=== PATIENT | female | born 1995 | race African-American/Black ===

== ENCOUNTER → 2023-12-20 | Outpatient (CLI) | payer MEDICAID ==
[2023-12-20 10:18] LABS: Basophils # (auto) 0.1 10 ^3/uL (0-0.2); Basophils % (auto) 0.5 % (0.0-2.0); Eosinophils # (auto) 0.1 10 ^3/uL (0-0.8); Eosinophils % (auto) 0.6 % (0.0-7.0); Hematocrit 36.9 % (36.0-46.0); Hemoglobin 12.1 g/dL (12.2-16.2); Lymphocytes # (auto) 2.4 10 ^3/uL (0.4-5.4); Lymphocytes % (auto) 24.2 % (10.0-50.0); Mean Corpuscular Hemoglobin 26.4 pg (28.0-32.0); Mean Corpuscular Hgb Conc. 32.8 g/dL (32.0-36.0); Mean Corpuscular Volume 80.3 fL (80.0-100.0); Monocytes # (auto) 0.6 10 ^3/uL (0-1.3); Monocytes % (auto) 5.5 % (0.0-12.0); Neutrophils % (auto) 69.2 % (37.0-80.0); Red Cell Distribution Width 15.2 % (11.8-14.3); White Blood Cell 10.1 10^3/uL (4.4-10.8)
[2023-12-21 07:06] LABS: RPR Non Reactive (Non Reactive)
[2023-12-21 23:07] LABS: Chlamydia Trachomatis, NAA Negative (Negative); Neisseria gonorrhoeae, NAA Negative (Negative)
== END | disposition home or self-care (01) ==
LOC: LAB 09:43
PROVIDERS: ATTEND Obstetrics & Gynecology
DX: Z34.00 Encounter for supervision of normal first pregnancy, unspecified trimester (principal); Z72.51 High risk heterosexual behavior; Z3A.00 Weeks of gestation of pregnancy not specified
CPT/HCPCS: 36415; 85025; 86592

== ENCOUNTER 2024-01-13 12:19 | Observation (INO) | payer MEDICAID ==
[~2024-01-13] VITALS: Ht 162.6 cm; Wt 88.5 kg
[2024-01-13] MEDS ORDERED: PREN-96 PO (13:37)
[2024-01-13 15:58] LABS: Basophils # (auto) 0 10 ^3/uL (0-0.2); Basophils % (auto) 0.2 % (0.0-2.0); Eosinophils # (auto) 0 10 ^3/uL (0-0.8); Hemoglobin 11.3 g/dL (12.2-16.2); Lymphocytes # (auto) 1.9 10 ^3/uL (0.4-5.4); Monocytes # (auto) 0.3 10 ^3/uL (0-1.3); Monocytes % (auto) 4.5 % (0.0-12.0); Neutrophils # (auto) 5.3 10 ^3/uL (1.6-8.6)
[2024-01-13 16:00] LABS: Eosinophils % (auto) 0.4 % (0.0-7.0); Hematocrit 34.7 % (36.0-46.0); Lymphocytes % (auto) 24.6 % (10.0-50.0); Mean Corpuscular Hemoglobin 25.7 pg (28.0-32.0); Mean Corpuscular Hgb Conc. 32.7 g/dL (32.0-36.0); Mean Corpuscular Volume 78.8 fL (80.0-100.0); Neutrophils % (auto) 70.3 % (37.0-80.0); Nucleated Red Blood Cells % 0.1 %; Red Blood Cells 4.41 10^6/uL (4.0-5.20); Red Cell Distribution Width 15.5 % (11.8-14.3); White Blood Cell 7.6 10^3/uL (4.4-10.8)
[2024-01-13 16:10] LABS: Alanine Aminotransferase 24 U/L (7-40); Albumin 3.9 g/dL (3.2-4.8); Alkaline Phosphatase 140 U/L (46-116); Anion Gap 6 (5-15); Aspartate Aminotransferase 32 U/L (13-40); BUN/Creatinine Ratio 17.2 (10.0-20.0); Blood Urea Nitrogen 10 mg/dL (9-23); Calcium 9.3 mg/dL (8.5-10.1); Carbon Dioxide 22 mmol/L (20-30); Chloride 107 mmol/L (98-107); Glucose 99 mg/dL (74-106); Potassium 4.1 mmol/L (3.5-5.1); Sodium 135 mmol/L (136-145)
[2024-01-13 16:11] LABS: Bilirubin, Total 0.2 mg/dL (0.2-1.0)
[2024-01-13 16:18] LABS: INR 0.92 (0.9-1.15); Partial Thromboplastin Time 25.6 SEC (24.5-34.5); Prothrombin Time 9.8 sec (9.3-11.8)
[2024-01-13] MEDS: LACTATED RINGER'S 1,000 ML IV SCH (16:53)
== END 2024-01-13 18:41 | disposition home or self-care (01) ==
LOC: UNDOADMOB 12:19 → INTOOBSV 12:19 → LDRP 12:19 → OBSVTOIN 12:19 → LDRP 17:55
PROVIDERS: ADMIT Obstetrics & Gynecology; ATTEND Obstetrics & Gynecology
DX: O40.3XX0 Polyhydramnios, third trimester, not applicable or unspecified (principal); Z3A.38 38 weeks gestation of pregnancy; Z86.2 Personal history of diseases of the blood and blood-forming organs and certain disorders involving the immune mechanism
CPT/HCPCS: 36415; 59025; 76818; 80053; 81002; 85025; 85610; 85730; 86592; 86803; 86850; 86900; 86901; 94760; 96360; 96361; G0378

== ENCOUNTER 2024-01-16 08:33 | Inpatient (IN) | payer MEDICAID ==
[~2024-01-16] VITALS: Ht 162.6 cm; Wt 87.5 kg
[~2024-01-16 08:33] MED LIST: PREN-96 PO
[2024-01-16] MEDS ORDERED: LIDOCAINE 2%HCL (LOCAL ANESTH.) INJ 20ML MDV IJ PRN (18:30)
[2024-01-16] MEDS ORDERED: BUTORPHANOL TARTRATE 2 MG/1 ML VIAL IV PRN ×2 (18:30)
[2024-01-16] MEDS: LACTATED RINGER'S 1,000 ML IV SCH (18:54)
[2024-01-16 20:12] LABS: Basophils # (auto) 0 10 ^3/uL (0-0.2); Basophils % (auto) 0.4 % (0.0-2.0); Eosinophils # (auto) 0 10 ^3/uL (0-0.8); Neutrophils # (auto) 5.4 10 ^3/uL (1.6-8.6); White Blood Cell 8.1 10^3/uL (4.4-10.8)
[2024-01-16 20:13] LABS: Eosinophils % (auto) 0.5 % (0.0-7.0); Hematocrit 32.9 % (36.0-46.0); Hemoglobin 10.9 g/dL (12.2-16.2); Lymphocytes # (auto) 2.2 10 ^3/uL (0.4-5.4); Lymphocytes % (auto) 27.6 % (10.0-50.0); Mean Corpuscular Hemoglobin 26.2 pg (28.0-32.0); Mean Corpuscular Hgb Conc. 33.1 g/dL (32.0-36.0); Mean Corpuscular Volume 79.2 fL (80.0-100.0); Monocytes # (auto) 0.4 10 ^3/uL (0-1.3); Monocytes % (auto) 4.7 % (0.0-12.0); Neutrophils % (auto) 66.8 % (37.0-80.0); Red Blood Cells 4.16 10^6/uL (4.0-5.20); Red Cell Distribution Width 15.5 % (11.8-14.3)
[2024-01-16 20:18] LABS: Urine Bacteria FEW /hpf (None Seen); Urine Blood 1+ /uL (Negative); Urine Clarity Turbid (Clear); Urine Color Light-Orange (Yellow); Urine Mucus FEW (None Seen); Urine Protein, UAD 1+ (Negative); Urine Urobilinogen Normal (Negative); Urine WBC 44 /hpf (0 - 5)
[2024-01-16] MEDS: miSOPROStol 50 MCG per PRE-CUT 1/2 TAB PO PRN (20:26)
[2024-01-16 20:27] LABS: INR 0.92 (0.9-1.15); Partial Thromboplastin Time 24.2 SEC (24.5-34.5); Prothrombin Time 9.8 sec (9.3-11.8)
[2024-01-16 20:28] LABS: Alanine Aminotransferase 20 U/L (7-40); Albumin 3.8 g/dL (3.2-4.8); Alkaline Phosphatase 134 U/L (46-116); Anion Gap 7 (5-15); Aspartate Aminotransferase 21 U/L (13-40); BUN/Creatinine Ratio 12.3 (10.0-20.0); Bilirubin, Total 0.2 mg/dL (0.2-1.0); Blood Urea Nitrogen 7 mg/dL (9-23); Carbon Dioxide 21 mmol/L (20-30); Chloride 107 mmol/L (98-107); Glucose 98 mg/dL (74-106); Sodium 135 mmol/L (136-145); Total Protein 6.8 g/dL (5.7-8.2)
[2024-01-16 20:29] LABS: Amphetamine Screen, Urine Neg (NEGATIVE); Barbiturate Scree,Urine Neg (NEGATIVE); Benzodiazephine Screen, Urine Neg (NEGATIVE); Cannabinoid Screen, Urine Neg (NEGATIVE); Cocaine Screen, Urine Neg (NEGATIVE); Opiate Scree,Urine Neg (NEGATIVE); Phencyclidine Screen, Urine Neg (NEGATIVE)
[2024-01-17 10:45] VITALS: TEMP 98.3
[2024-01-17] MEDS: LACTATED RINGER'S 1,000 ML IV ONE (14:54)
[2024-01-17] MEDS: fentaNYL CITRATE 100 MCG/2 ML VL ONE (15:01)
[2024-01-17] MEDS: Lidocaine W-Epinephrine 1.5%-1:200,000 INJ 10ml Vial EPI ONE (15:01)
[2024-01-17] MEDS: ROPIVACAINE HCL 200 ML ONE (15:08)
[2024-01-17] MEDS: FAMOTIDINE (10MG/ML) 2ML VL IV PRN (15:59)
[2024-01-17] MEDS ORDERED: LACT. RINGERS/OXYTOCIN 20UNITS 1,000 ML IV SCH (16:45)
[2024-01-17] MEDS ORDERED: TERBUTALINE SULFATE 1 MG/ML 1ML VIAL SC PRN (16:45)
[2024-01-17] MEDS: diphenhdrAMINE HCL 50 MG/1 ML VL IV PRN (17:27)
[2024-01-17] MEDS ORDERED: D5W/LACTATED RINGERS 1,000 ML IV SCH (18:00)
[2024-01-17] MEDS: LIDOCAINE HCL 2 %PF INJ 10ML AMP IJ ONE (19:42)
[2024-01-17] MEDS ORDERED: fentaNYL CITRATE 100 MCG/2 ML VL ONE (19:52)
[2024-01-17] MEDS ORDERED: MIDAZOLAM HCL 2MG/2ML 2ml VIAL (1mg/ml) ONE (19:52)
[2024-01-17] MEDS ORDERED: MORPHINE SULF PF 5 MG/10 ML VIAL ONE (19:52)
[2024-01-17] MEDS ORDERED: IBUP-1456 PO (20:11)
[2024-01-17] MEDS ORDERED: HYDR-4902 PO (20:11)
[2024-01-17] MEDS ORDERED: DOCU-94 PO (20:11)
[2024-01-17] MEDS ORDERED: ONDANSETRON HCL 4 MG/2 ML VIAL IV PRN ×2 (20:15→21:00)
[2024-01-17] MEDS ORDERED: ceFAZolin 1GM/50ML 50 ML IV SCH (20:15)
[2024-01-17] MEDS: METHYLERGONOVINE MALEATE 0.2 MG/ML AMP IM ONE (20:15)
[2024-01-17] MEDS: CARBOPROST TROMETHAMINE 250 MCG/1ML VIAL IM ONE ×2 (20:25→20:40)
[2024-01-17] MEDS ORDERED: HYDROmorphone HCL 2 MG/ML VL/or syr IV PRN ×2 (21:00→22:45)
[2024-01-17] MEDS ORDERED: ePHEDrine SULFATE 50 MG/ML AMP IV PRN (21:00)
[2024-01-17] MEDS ORDERED: MIDAZOLAM HCL 2MG/2ML 2ml VIAL (1mg/ml) IV PRN (21:00)
[2024-01-17] MEDS ORDERED: NALOXONE HCL 0.4 MG/ML VIAL IV PRN (21:00)
[2024-01-17] MEDS ORDERED: LABETALOL HCL 5 MG/ML 4ML SYRINGE IV PRN (21:00)
[2024-01-17] MEDS ORDERED: DexAMETHasone SOD PHOS 10MG/1ML VIAL INJ IV PRN (21:00)
[2024-01-17] MEDS ORDERED: oxyTOCIN 10 UNIT/ML 10ML VIAL ONE (21:02)
[2024-01-17 21:06] VITALS: PULSE 101; RESP 15; O2SAT 96
[2024-01-17] MEDS: DIPHENOXYLATE W/ATROPINE 2.5 MG TAB PO ONE (21:45)
[2024-01-17] MEDS: DIPHENOXYLATE W/ATROPINE 2.5 MG TAB ONE ×2 (21:50→22:07)
[2024-01-17 22:25] VITALS: BP_SYST 119; BP_DIAS 65; BP_DIAS 66; PULSE 91; RESP 18; TEMP 98.2; O2SAT 93
[2024-01-17] MEDS ORDERED: ACETAMINOPHEN IV 1000 MG/100ML (10MG/ML) IV PRN (22:45)
[2024-01-17] MEDS ORDERED: MORPHINE SULFATE INJ 2 MG/ml SYRG IV PRN (22:45)
[2024-01-17] MEDS ORDERED: KETOROLAC TROMETH 30 MG/ML 1ML VIAL IV PRN (22:45)
[2024-01-17 23:25] VITALS: BP 124/66; PULSE 80; RESP 18; O2SAT 94
[2024-01-17 23:37] LABS: Basophils # (auto) 0.1 10 ^3/uL (0-0.2); Basophils % (auto) 0.6 % (0.0-2.0); Eosinophils # (auto) 0 10 ^3/uL (0-0.8); Eosinophils % (auto) 0.1 % (0.0-7.0); Hematocrit 33.5 % (36.0-46.0); Monocytes # (auto) 0.8 10 ^3/uL (0-1.3)
[2024-01-17 23:39] LABS: Hemoglobin 11.1 g/dL (12.2-16.2); Lymphocytes # (auto) 1.9 10 ^3/uL (0.4-5.4); Lymphocytes % (auto) 13.9 % (10.0-50.0); Mean Corpuscular Hemoglobin 26.3 pg (28.0-32.0); Mean Corpuscular Hgb Conc. 33.2 g/dL (32.0-36.0); Mean Corpuscular Volume 79.3 fL (80.0-100.0); Monocytes % (auto) 5.7 % (0.0-12.0); Neutrophils # (auto) 11.2 10 ^3/uL (1.6-8.6); Neutrophils % (auto) 79.7 % (37.0-80.0); Red Blood Cells 4.22 10^6/uL (4.0-5.20); Red Cell Distribution Width 15.4 % (11.8-14.3)
[2024-01-18] VITALS (29 sets, daily range): BP systolic 106–138; BP diastolic 43–90; PULSE 80–100; RESP 16–22; TEMP 98.1–99.1; O2SAT 93–98
[2024-01-18] MEDS: ceFAZolin 1GM/50ML 50 ML IV SCH (03:05)
[2024-01-18] MEDS: ceFAZolin 1GM/50ML 100 ML IV ONE (03:06)
[2024-01-18] MEDS: WITCH HAZEL-GLYCERIN PAD TOP PRN (03:08)
[2024-01-18] MEDS: DERMOPLAST 60ML BOTTLE TOP PRN (03:08)
[2024-01-18] MEDS: PHISODERM TOP SOLN 240ML BTL TOP PRN (03:08)
[2024-01-18] MEDS: ACETAMINOPHEN IV 1000 MG/100ML (10MG/ML) IV PRN (03:44)
[2024-01-18] MEDS: LACT. RINGERS/OXYTOCIN 20UNITS 500 ML IV ONE ×2 (04:51)
[2024-01-18 05:41] LABS: Basophils # (auto) 0 10 ^3/uL (0-0.2); Eosinophils # (auto) 0 10 ^3/uL (0-0.8); Eosinophils % (auto) 0.1 % (0.0-7.0); Lymphocytes # (auto) 1.9 10 ^3/uL (0.4-5.4); Monocytes # (auto) 0.7 10 ^3/uL (0-1.3)
[2024-01-18 05:44] LABS: Basophils % (auto) 0.2 % (0.0-2.0); Hematocrit 31.6 % (36.0-46.0); Hemoglobin 10.4 g/dL (12.2-16.2); Lymphocytes % (auto) 17.9 % (10.0-50.0); Mean Corpuscular Hemoglobin 26.4 pg (28.0-32.0); Mean Corpuscular Volume 80.1 fL (80.0-100.0); Monocytes % (auto) 6.3 % (0.0-12.0); Neutrophils # (auto) 8.2 10 ^3/uL (1.6-8.6); Neutrophils % (auto) 75.5 % (37.0-80.0); Red Blood Cells 3.94 10^6/uL (4.0-5.20); Red Cell Distribution Width 15.5 % (11.8-14.3); White Blood Cell 10.9 10^3/uL (4.4-10.8)
[2024-01-18 07:07] LABS: RPR Non Reactive (Non Reactive)
[2024-01-18] MEDS: LIDOCAINE HCL 2 %PF INJ 10ML AMP IJ ONE (17:22)
[2024-01-18] MEDS: ePHEDrine SULFATE 50 MG/ML AMP IV ONE ×2 (17:22)
[2024-01-18] MEDS: LACT. RINGERS/OXYTOCIN 20UNITS 1,000 ML IV ONE (17:23)
[2024-01-18] MEDS: NALOXONE HCL 0.4 MG/ML VIAL IV ONE (17:23)
[2024-01-18] MEDS: ONDANSETRON HCL 4 MG/2 ML VIAL IV ONE (17:24)
[2024-01-18] MEDS: GUM (CHEWING) 1 GUM CHEW CHEW ONE (17:27)
[2024-01-18] MEDS ORDERED: HYDROcodone-ACET 5/325MG TAB PO PRN ×2 (20:15)
[2024-01-18] MEDS: SIMETHICONE 80 MG CHEWABLE TABLET PO SCH (22:14)
[2024-01-19] MEDS: ceFAZolin 1GM/50ML 50 ML IV SCH
[2024-01-19] MEDS: IBUPROFEN 800 MG TAB PO PRN (01:52)
[2024-01-19 03:00] VITALS: BP 133/82; PULSE 80; RESP 16; TEMP 97.7; O2SAT 97
[2024-01-19 07:00] VITALS: BP 133/81; PULSE 96; RESP 18; TEMP 97.6; O2SAT 95
[2024-01-19 11:00] VITALS: BP 134/84; PULSE 97; RESP 20; TEMP 98.3; O2SAT 97
[2024-01-19] MEDS: DOCUSATE CALCIUM 240 MG CAP PO SCH (12:06)
[2024-01-19 15:00] VITALS: BP 132/80; PULSE 95; RESP 18; TEMP 99; O2SAT 96
[2024-01-19 18:06] LABS: Treponema pallidum Ab (FTA-Ab) Non Reactive (Non Reactive)
[2024-01-19 18:47] VITALS: BP 136/80; PULSE 89; RESP 18; TEMP 98.9; O2SAT 97
[2024-01-19] MEDS: TETANUS-DIPTH-ACEL PERTUSSIS 0.5ML SYR Tdap IM ONE (21:49)
== END 2024-01-19 22:40 | disposition home or self-care (01) | DRG 540 ==
LOC: UNDOADMOB 13:30 → LDRP 13:30 → OBSVTOIN 18:27 → LDRP 19:46
PROVIDERS: ADMIT Obstetrics & Gynecology; ATTEND Obstetrics & Gynecology
PROC: 10D00Z1 Extraction of Products of Conception, Low, Open Approach (ICD-10-PCS; principal; 2024-01-17 20:05)
DX: O76 Abnormality in fetal heart rate and rhythm complicating labor and delivery (principal); O40.3XX0 Polyhydramnios, third trimester, not applicable or unspecified; O36.63X0 Maternal care for excessive fetal growth, third trimester, not applicable or unspecified; Z37.0 Single live birth; Z3A.39 39 weeks gestation of pregnancy
CPT/HCPCS: 36415; 59025; 59200; 62282; 76805; 76818; 80053; 80307; 81001; 81002; 82962; 85025; 85610; 85730; 86592; 86850; 86900; 86901; 90715; 94760; 94762; 96360; 96361; 96366; 96372; 96374; G0378; J0131; J2250; J2590; J3490